=== PATIENT | female | born 2000 | race Caucasian/White ===

== ENCOUNTER 2020-08-07 17:15 | Emergency (ER) | payer SELFPAY ==
[2020-08-07 17:21] VITALS: BP 117/64; PULSE 116; RESP 20; TEMP 37.1; O2SAT 99
== END 2020-08-07 18:35 | disposition left against medical advice (07) ==
PROVIDERS: Emergency Provider Emergency Medicine
DX: R06.02 Shortness of breath (principal)
CPT/HCPCS: 99281; 99282